=== PATIENT | female | born 1955 | race Two or more races ===

== ENCOUNTER 2023-10-01 05:35 | Day surgery (SDC) | payer OTHER ==
[~2023-10-01 05:35] MED LIST: COZAAR25 MG PO; GLIMEPIRIDE4 M1 PO; LANTUS SOL100 UNIT/1; PANTOPRAZOLE SO20 MG PO; PROMETRIUM200 MG PO; ROSUVASTATIN CAL5 MG PO; SYNTHROID137 MCG PO; TRIJARDY XR 121 EACH PO
[2023-10-01] MEDS ORDERED: METRONIDAZOLE/SODIUM CHLORIDE 500 MG/100 ML PIGGYBACK IV ONE ×2 (07:29→10:00)
[2023-10-01] MEDS ORDERED: CEFTRIAXONE SODIUM 2,000 MG VIAL ONE (07:29)
[2023-10-01] MEDS ORDERED: POVIDONE-IODINE 118 ML BOTT TOP ONE (10:00)
[2023-10-01] MEDS ORDERED: CEFTRIAXONE SODIUM 2,000 MG VIAL IV ONE (10:00)
[2023-10-01] MEDS ORDERED: DIBUCAINE 15 GM OINT..GM. TUBE RECTAL ONE (10:00)
[2023-10-01] MEDS ORDERED: BUPIVACAINE HCL/PF 0.5% 30ML ML IJ ONE (10:00)
[2023-10-01] MEDS ORDERED: HEMOSTATIC MATRIX 1 KIT KIT TOP ONE ×2 (10:00→10:12)
[2023-10-01] MEDS ORDERED: LIDOCAINE HCL 1%/Epi 20ML VIAL IJ ONE ×2 (10:00→10:12)
[2023-10-01] MEDS ORDERED: BUPIVACAINE HCL/PF 0.5% 30ML ML ONE (10:12)
[2023-10-01] MEDS ORDERED: POVIDONE-IODINE SCRUB 118 ML BOTT TOP ONE (10:12)
[2023-10-01] MEDS ORDERED: DIBUCAINE 30 GM TUBE ONE (10:12)
== END 2023-10-01 14:55 | disposition home or self-care (01) ==
LOC: CIR.AMB 05:35
PROVIDERS: ATTEND Colon & Rectal Surgery
DX: D12.9 Benign neoplasm of anus and anal canal (principal); K62.89 Other specified diseases of anus and rectum; Z20.822 Contact with and (suspected) exposure to COVID-19